=== PATIENT | male | born 1960 ===

== ENCOUNTER 2017-06-04 07:10 | Day surgery (SDC) | payer OTHER ==
[~2017-06-04 07:10] MED LIST: Buffered Lidocaine 0.9% SYRIN* 5 ML/SYR SYRINGE INTRADERM ONE; Famotidine TAB* 20 MG PO ONE; Metoclopramide TAB* 10 MG PO ONE; Sodium Citrate/Citric Acid* 15 ML UDC PO ONE
[2017-06-04] MEDS ORDERED: Famotidine TAB* 20 MG ONE (07:15)
[2017-06-04] MEDS ORDERED: Sodium Citrate/Citric Acid* 15 ML UDC ONE (07:15)
[2017-06-04] MEDS ORDERED: Buffered Lidocaine 0.9% SYRIN* 5 ML/SYR SYRINGE ONE (07:15)
[2017-06-04] MEDS ORDERED: Metoclopramide TAB* 10 MG ONE (07:15)
[2017-06-04] MEDS ORDERED: Oxymetazoline 0.05% NASAL SPR* 15 ML BTL ONE ×2 (08:22→08:47)
[2017-06-04] MEDS ORDERED: Lidocaine 1% MPF wEPI 200,000* 30 ML SDV ONE (08:47)
[2017-06-04] MEDS ORDERED: Lidocaine 4% TOPICAL* 50 ML TOP.SOLN ONE (08:47)
[2017-06-04] MEDS ORDERED: Bacitracin OINTMENT* 0.5% 0.5 oz TUBE ONE (08:47)
[2017-06-04] MEDS ORDERED: fentaNYL* 50 MCG/ML 2 ML VIAL (100 MCG VIAL) ONE (09:07)
[2017-06-04] MEDS ORDERED: oxyCODONE/Acetamin 5/325 MG* TAB PO PRN (09:32)
[2017-06-04] MEDS ORDERED: Ketorolac INJ* 30 MG/ML 1 ML VIAL IV PRN (09:32)
[2017-06-04] MEDS ORDERED: DiMENhydriNATE IV* 50 MG/ML VIAL IV PUSH PRN (09:32)
[2017-06-04] MEDS ORDERED: fentaNYL* 50 MCG/ML 2 ML VIAL (100 MCG VIAL) IV PRN (09:32)
[2017-06-04] MEDS ORDERED: Ondansetron INJ* 2 MG/ML VIAL IV PRN (09:32)
[2017-06-04] MEDS ORDERED: Ibuprofen TAB* 200 MG ONE (10:53)
[2017-06-04] MEDS ORDERED: Ibuprofen TAB* 600 MG ONE (10:53)
[2017-06-04 11:20] VITALS: BP 133/92
--- NOTE | 2017-06-04 12:36 | OP ---
DATE OF OPERATION: 06/04/17 [facility] DATE OF : 60 SURGEON: Alejandro Boateng MD [employer] EXAMINER: None. ANESTHESIOLOGIST: Hollis Lira MD ANESTHESIA: General. PRE-OP DIAGNOSIS: Deviated nasal septum and left inferior turbinate hypertrophy. POST-OP DIAGNOSIS: Deviated nasal septum and left inferior turbinate hypertrophy. OPERATIVE PROCEDURE: Septoplasty with pressure and cautery of the left inferior turbinate. ESTIMATED BLOOD LOSS: Negligible. SPECIMENS: None. Septal cartilage and bone was discarded. There was left septal deviation with a large leftward deflection of the maxillary crest and more posteriorly a large left-sided spur. INDICATION: This is a 57-year-old male with longstanding left-sided nasal airway obstruction. Anatomically, he was noted to have significant left septal deviation with hypertrophy of the left inferior turbinate. DESCRIPTION OF PROCEDURE: On 06/04/17, the patient was brought to the operating room. General anesthesia was induced and an LMA was placed. The patient was draped and a time-out was performed. He had been previously decongested in the holding area with Afrin. Approximately 9 cc of 1% lidocaine with 1:100,000 epinephrine were infiltrated into both sides of the nasal septum. A left hemitransfixion incision was then made. A submucoperichondrial flap was elevated on the left side over the maxillary crest as well as over the septal spur. A transition incision was then made through the quadrangular cartilage posterior to the mucosal incision and a right mucoperichondrial flap was elevated. The deflected portion of the anterior quadrangular cartilage was removed with a swivel knife. The maxillary crest was taken down with a 4 mm osteotome more posteriorly. The septal spur was removed with a double action scissor and a double action rongeur. Once all the deviated portions of the septal cartilage and bone were removed, a single piece of relatively large cartilage was selected. It was flattened in the morselizer. It was then placed back between the mucoperichondrial flaps and sutured in position with a quilting stitch. The hemitransfixion incision was then closed with 5-0 chromic. Septal splints were brought into the field. Prior to placement of the septal splints, the left inferior turbinate was outfractured. Approximately three passes were made to the turbinate with the [employer] bipolar device. The turbinate was in-fractured. The Elmed device was used to make approximately three passes through the soft tissue of the turbinate and then the turbinate was outfractured. At this point, the septal splints were placed and secured with a 3-0 Prolene. A drip pad was applied and the patient returned to the care of the anesthesiologist, extubated and delivered to the PACU in stable condition. [id number] #: [id number] MICHAEL
== END 2017-06-04 11:21 | disposition home or self-care (01) ==
LOC: OR 07:10
PROVIDERS: ATTEND Otolaryngology
DX: J34.2 Deviated nasal septum (principal); J34.3 Hypertrophy of nasal turbinates; E03.9 Hypothyroidism, unspecified; M19.90 Unspecified osteoarthritis, unspecified site
CPT/HCPCS: A9270-GY; J2001; J3010